=== PATIENT | female | born 1985 | race African-American/Black ===

== ENCOUNTER 2018-03-05 20:14 | Emergency (ER) | payer OTHER, SELFPAY | END 2018-03-05 22:36 | disposition home or self-care (01) | LOC: ERS 20:14 | DX: K02.9 Dental caries, unspecified (principal); I10 Essential (primary) hypertension; F32.9 Major depressive disorder, single episode, unspecified; F17.210 Nicotine dependence, cigarettes, uncomplicated | CPT/HCPCS: 99282 ==

== ENCOUNTER 2018-06-28 09:43 | Inpatient (IN) | payer OTHER ==
[2018-06-28 10:19] VITALS: BMI 24.8
--- NOTE | 2018-06-28 11:15 | PDOC.LDHP ---
Labor and Delivery H&P Chief complaint: contractions, loss of fluid HPI: Ms. Bloom is a at 38.5 weeks by a 3T US with unknown LMP that presents today with complaints of LOF (clear) since yesterday and not a definable contraction pattern. She reports the contraction pain as in her lower abdomen, back and buttocks. consisitent fluid leak and positive FM. she denies vaginal bleeding or discharge. Current gestational age (weeks): 38 (.5) Due date: 07/07/18 Dating criteria: other (3T US) Current complications: other (late to care) Abnormal US findings: No Past Medical History: anemia in , one at 26 weeks, possible elevated pressures during previous preg. untreated Current medications: pre-chelly vitamins, other (diclegis) Previous surgical history: none Social history: tobacco use - Physical Exam Vital signs reviewed and normal: yes General: NAD, resting Heart: RRR Lungs: CTAB Abdomen: NTTP Extremeties: no edema FHT: variability present (baseline 150, accelerations x2. reactive strip) - Vaginal Exam cm dilated: 3 Effacement: 75% Station: -2 - OB Labs Blood type: AB RH: positive Antibody Screen: positive HIV: negative RPR: negative HEPSAg: negative GBS: negative Urine drug screen: negative Rubella: immune - Assessment labor r/o - Plan Plan: observation in L&D -: - /toco monitoring on L&D, monitor VS - cervical exam with gel preformed on arrival, amnisure not useful at this point - unchanged cervical exam from clinic 1 week ago - AXEL 11.5 - sterile spec neg for pooling/valsalva - recheck cervix in 2 hours - DC with labor precautions if now change <Artie Walker - Last Filed: 06/28/18 12:41> <Stalin Hollis - Last Filed: 06/28/18 16:59> Allergies/Adverse Reactions: Allergies Allergy/AdvReac Type Severity Reaction Status Date / Time No Known Allergies Allergy Verified 06/28/18 10:07 Attending Addendum - Attending Addendum Date/Time: 06/28/18 2157 I personally evaluated the patient and discussed the management with Dr. Walker. I agree with the History, Examination, Assessment and Plan documented above with any addition or exceptions noted below. 32 y.o. EGA 38 5/7 wks by 3T US with unsure LMP, late onset to PNC, poor historian may have been treated for HTN in in prior here for c/o LOF, determined to be intact without ROM. Over course of eval, pt' s BP's have consistently run 130-140's/80-90's. Urine Pr/Cr ratio 0.113, so Gestational HTN. EFW today 3 kg. BPP 03/17 with Cat1 strip. SVE reported /- 2/posterior/medium. IOL for Gest HTN at term. Cytotec vs. Pitocin. T&C 2UPRBC 's to hold in anticipation of PPH with grand multiparous uterine atony. <Stalin Hollis - Last Filed: 06/28/18 16:59>
[2018-06-28 14:38] LABS: #Basophils 0.1 thou/uL (0.0-0.2); #Eosinphils 0.1 thou/uL (0.0-0.7); #Lymphocytes 1.8 thou/uL (1.20-3.40); #Monocytes 0.3 thou/uL (0.11-0.59); #Neutrophils 5.9 thou/uL (1.40-6.50); %Basophils 0.9 % (0.0-1.0); %Eosinophils 0.6 % (0.0-10.0); %Lymphocytes 22.1 % (21.0-51.0); %Neutrophils 72.4 % (42.0-75.0); Hemoglobin 10.4 g/dL (12.0-16.0); Mean Corpuscular HGB CONC 30.4 g/dL (32.0-36.0); Mean Corpuscular Hemoglobin 23.7 pg (27.0-31.0); Mean Corpuscular Volume 77.9 fL (78.0-98.0); Mean Platelet Volume 9.1 fL (7.4-10.4); Platelet Count 304 thou/uL (130-400); RBC Distribution Width 15.4 % (11.5-14.5); Red Blood Cell (RBC) Count 4.38 mill/uL (4.20-5.40); White Blood Cell (WBC) Count 8.1 thou/uL (4.8-10.8)
[2018-06-28 14:57] LABS: Creatinine, Urine 141.2 mg/dL (47-110)
[2018-06-28 14:59] LABS: ALT (SGPT) 8 U/L (8-55); AST (SGOT) 12 U/L (5-34); Albumin 3.7 g/dL (3.5-5.0); Alkaline Phosphatase 147 U/L (40-150); Anion Gap 13 mmol/L (10-20); BUN (Urea Nitrogen) 4 mg/dL (7.0-18.7); Bilirubin, Total 0.4 mg/dL (0.2-1.2); Calc. Creatinine Clearance 128 mL/min (70-130); Calcium 9.5 mg/dL (7.8-10.44); Carbon Dioxide 21 mmol/L (22-29); Chloride 106 mmol/L (98-107); Estimated GFR-MDRD Greater than 90; Globulin 3.7 g/dL (2.4-3.5); Glucose 75 mg/dL (70-105); LDH 153 U/L (125-220); Potassium 4.5 mmol/L (3.5-5.1); Protein, Total 7.4 g/dL (6.0-8.3); Sodium 135 mmol/L (136-145); Uric Acid 5.4 mg/dL (2.6-6.0)
[2018-06-28] MEDS ORDERED: Doxylamine 25 MG TAB PO PRN (16:16)
--- NOTE | 2018-06-28 19:07 | ULT ---
OB ULTRASOUND OB NONSTRESS BIOPHYSICAL PROFILE: Comparison: None. Technique: Nonstress biophysical profile was performed. Sagittal and transverse imaging of the gravid uterus was performed. FINDINGS: Single intrauterine gestation with vertex presentation. Anterior placenta. Current study is limited i n the evaluation for previa. Cervix is not adequately demonstrated due to vertex presentation. Amniotic fluid index is 12.3 cm. biometry: BPD 9.30 cm 37 weeks 6 days HC 33.05 cm 37 weeks 4 days AC 33.42 cm 37 weeks 2 days FL 6.93 cm 35 weeks 4 days Average age by sonography is 37 weeks 1 day. FRANCINE is 12-9-18. Estimated weight is 3087 grams, +/ - 457 grams. There are hearts at the rate of 172 beats/minute. Nonstress biophysical profile: tone: 2 breathin movement: 2 Amniotic fluid: 2 Total: 8/8 IMPRESSION: Nonstress biophysical profile with a score of 8/8. POS: [facility]
[2018-06-28] MEDS ORDERED: Promethazine HCl 25 MG/ML VIAL IM PRN (20:31)
[2018-06-28] MEDS ORDERED: NS / Oxytocin 40 units/1000ml 1,000 ML IV PRN (20:31)
[2018-06-28] MEDS ORDERED: Carboprost 250 MCG/ML AMP IM PRN (20:31)
[2018-06-28] MEDS ORDERED: Lidocaine 1% (PF) 30 ML VIAL SC PRN (20:31)
[2018-06-28] MEDS ORDERED: Diphenoxylate HCl/Atropine Tablet PO PRN (20:31)
[2018-06-28] MEDS ORDERED: Misoprostol 200 MCG TAB PR PRN (20:31)
[2018-06-28] MEDS ORDERED: Methylergonovine 0.2 MG/ML VIAL IM PRN (20:31)
[2018-06-28] MEDS ORDERED: NS w/ Oxytocin 10 units 500 ML IV SCH (20:31)
[2018-06-28] MEDS ORDERED: Ondansetron PF 4 MG/2 ML Vial IVP PRN (20:31)
[2018-06-28] MEDS: Acetaminophen 500 MG TAB PO PRN (21:39)
[2018-06-28 22:34] LABS: ALT (SGPT) Less than 7 U/L (8-55); AST (SGOT) 11 U/L (5-34); Albumin 3.4 g/dL (3.5-5.0); Alkaline Phosphatase 136 U/L (40-150); Anion Gap 14 mmol/L (10-20); BUN (Urea Nitrogen) 6 mg/dL (7.0-18.7); Bilirubin, Total 0.3 mg/dL (0.2-1.2); Calc. Creatinine Clearance 136 mL/min (70-130); Calcium 9.3 mg/dL (7.8-10.44); Carbon Dioxide 20 mmol/L (22-29); Chloride 104 mmol/L (98-107); Estimated GFR-MDRD Greater than 90; Globulin 3.5 g/dL (2.4-3.5); Glucose 103 mg/dL (70-105); Protein, Total 6.9 g/dL (6.0-8.3); Sodium 134 mmol/L (136-145)
[2018-06-28 22:44] LABS: Hemoglobin 9.7 g/dL (12.0-16.0); Mean Corpuscular HGB CONC 30.4 g/dL (32.0-36.0); Mean Corpuscular Hemoglobin 23.8 pg (27.0-31.0); Mean Corpuscular Volume 78.4 fL (78.0-98.0); Mean Platelet Volume 12.9 fL (7.4-10.4); Platelet Count 303 thou/uL (130-400); RBC Distribution Width 15.6 % (11.5-14.5); Red Blood Cell (RBC) Count 4.08 mill/uL (4.20-5.40); White Blood Cell (WBC) Count 8.1 thou/uL (4.8-10.8)
[2018-06-28 22:52] LABS: Syphilis Antibody Nonreactive (Nonreactive); Syphilis Antibody Index 0.04 S/CO (<1.00 Non-Reactive)
[2018-06-28 23:18] LABS: HBSAg Index 0.25 S/CO (0-0.99); Hep B Surf Ag Non-Reactive S/CO (NonReactive)
--- NOTE | 2018-06-28 23:43 | PDOC.LDPN ---
Labor & Delivery Progress Note - Subjective Subjective: comfortable, no concerns - Objective Vital signs reviewed and normal: yes General: NAD, resting Uterine fundus: non tender Dilation: 3 Effacement: 75% Station: -1 FHT: category 1, variability present [place] contractions every: 2-4min - Assessment (1) IUP (intrauterine ), incidental Code(s): Z34.90 - ENCNTR FOR SUPRVSN OF NORMAL , UNSP, UNSP TRIMESTER Current Visit: Yes Status: Acute (2) Multigravida in third trimester Code(s): Z34.83 - ENCOUNTER FOR SUPRVSN OF NORMAL , THIRD TRIMESTER Current Visit: Yes Status: Acute Plan: continue plan of care, pitocin for augmentation -: IUP, eIOL - patient resting comfortably - no pre-E symptoms - CTX every 2-4 min on the monitor, patient not feeling CTX - last check at 2100 3/-1, will recheck at 0000 - Will continue to monitor VS - Pitocin currently running - FHR: 150s, mod variability, no decels, accels +, cat 2 - WIll continue to monitor - continue plan of care Hx of gHTN - BP wnl - will continue to monitor
[2018-06-29] MEDS: Butorphanol Tartrate 1 MG/ML VIAL SLOW IVP PRN ×2 (00:59→02:28)
--- NOTE | 2018-06-29 01:22 | PDOC.LDPN ---
Labor & Delivery Progress Note - Subjective Subjective: painful contractions, vaginal pressure - Objective Vital signs reviewed and normal: yes General: NAD, breathing through contractions Uterine fundus: non tender Dilation: 4 Effacement: 75% Station: -1 FHT: category 1, variability present [place] contractions every: every 2-4min - Assessment (1) IUP (intrauterine ), incidental Code(s): Z34.90 - ENCNTR FOR SUPRVSN OF NORMAL , UNSP, UNSP TRIMESTER Current Visit: Yes Status: Acute (2) Multigravida in third trimester Code(s): Z34.83 - ENCOUNTER FOR SUPRVSN OF NORMAL , THIRD TRIMESTER Current Visit: Yes Status: Acute Plan: continue plan of care, pitocin for augmentation -: IUP, eIOL - patient resting, pt now feeling CTX ever 2-4min - Pt given stadol for pain - no pre-E symptoms - CTX every 2-4 min - last check at 004/-1, will continue checks - Will continue to monitor VS - Pitocin currently running at 8 - FHR: 130s, mod variability, no decels, accels + - Will continue to monitor - continue plan of care Hx of gHTN - BP wnl - will continue to monitor
--- NOTE | 2018-06-29 03:23 | PDOC.LDPN ---
Labor & Delivery Progress Note - Subjective Subjective: comfortable, no concerns - Objective Vital signs reviewed and normal: yes General: NAD, resting, breathing through contractions Uterine fundus: non tender Dilation: 5 Effacement: 75% Station: 0 FHT: category 1, variability present [place] contractions every: every 2-4min - Assessment (1) IUP (intrauterine ), incidental Code(s): Z34.90 - ENCNTR FOR SUPRVSN OF NORMAL , UNSP, UNSP TRIMESTER Current Visit: Yes Status: Acute (2) Multigravida in third trimester Code(s): Z34.83 - ENCOUNTER FOR SUPRVSN OF NORMAL , THIRD TRIMESTER Current Visit: Yes Status: Acute Plan: continue plan of care, pitocin for augmentation -: IUP, eIOL - patient resting, pt now feeling CTX ever 2-4min - Pt given stadol for pain - no pre-E symptoms - CTX every 2-4 min - last check at 0300 5/80/-0, will continue checks - Will continue to monitor VS - continue pitocin - FHR: 130s, mod variability, no decels, accels + - Will continue to monitor - continue plan of care Hx of gHTN - BP wnl - will continue to monitor
[2018-06-29] MEDS ORDERED: Milk Of Magnesia 30 ML UDCUP PO PRN (05:02)
[2018-06-29] MEDS ORDERED: Preparation H Ointment 28 GM TUBE PR PRN (05:02)
[2018-06-29] MEDS ORDERED: Methylergonovine 0.2 MG/ML VIAL IM PRN (05:02)
[2018-06-29] MEDS ORDERED: Adacel (T-DAP) 0.5 ML VIAL IM ONE (05:02)
[2018-06-29] MEDS ORDERED: Benzocaine/Menthol 20-0.5% 60 ML CAN TOP PRN (05:02)
[2018-06-29] MEDS ORDERED: diphenhydrAMINE 25 MG CAP PO PRN (05:02)
[2018-06-29] MEDS ORDERED: Bisacodyl 10 MG SUPP PR PRN (05:02)
[2018-06-29] MEDS ORDERED: Lanolin Ointment 7 GM TUBE TOP PRN (05:02)
--- NOTE | 2018-06-29 05:04 | PDOC.OPDEL ---
Addendum entered and electronically signed by Vickie Diaz MD 06/29/18 05:17 : Patient did not have an uneventful antepartum course -- patients antepartum course consisted of: late to care, gHTN, previous PPH, previous pre-term delivery, grand multiparity. Original Note: OB Operative/Delivery Note Delivery Dr/Surgeon: Elissa Diaz Frakes Assist: Rafy Pre-Delivery Diagnosis: active labor Procedure/Post Delivery Dx: spontaneous vaginal delivery Weeks gestation: 38 (38.6wk) - Findings A Sex: male - 1 min: 9 - 5 min: 9 - Additional Findings/Plan Placenta delivered: spontaneous Repaired Obstetrical Laceration: none Estimated blood loss: 250ml Compilations/Other Findings: This is 32yo F no 7109 @ 38.6wks who delivered a viable M infant at 0445 on 06/29/18. Following an uneventful antepartum course, a vigorous male was delivered over an intact perineum in the occipitoanterior position. Anterior Shoulder and then remainder of the body delivered. No nuchal cord. The head was held down and mouth and nares were bulb suctioned. Cord clamped (after delayed cord clamping) and cut and cord blood collected. Placenta delivered intact (in the [place] presentation) with a 3 vessel cord noted. Fundal massage was performed and the fundus was firm. The cervix and vagina were inspected and found to be free of lacerations. Cytotech used as a precaution due to hx of previous PPH. EBL 250ml. Infant went to nursery in good condition for routine care. Apgars were 9/9 at 1 & 5 minutes, respectively. Patient tolerated delivery well and went to after routine recovery/care. Post delivery plan: routine recovery <Vickie Diaz - Last Filed: 06/29/18 05:02> Attending Addendum - Attending Addendum Date/Time: 06/29/18 0900 I personally directly supervised the . No complications. See resident noted. <Kam Hillman - Last Filed: 06/29/18 09:01>
[2018-06-29] MEDS ORDERED: NS / Oxytocin 40 units/1000ml 1,000 ML IV SCH (05:15)
[2018-06-29] MEDS ORDERED: Lactated Ringer's 1,000 ML IV SCH (05:15)
[2018-06-29] MEDS ORDERED: Acetaminophen/Codeine 30-300mg Tablet PO PRN (05:29)
[2018-06-29] MEDS ORDERED: Ibuprofen 800 MG TAB PO SCH (06:00)
[2018-06-29] MEDS: pyridOXINE 50 MG (B6) TAB PO SCH ×2 (08:06→10:06)
[2018-06-29] MEDS ORDERED: Ketorolac Tromethamine 30 MG/ML VIAL IVP SCH (08:15)
[2018-06-29] MEDS: Docusate Calcium (SURFAK) 240 MG CAP PO SCH ×2 (08:28→21:42)
[2018-06-29] MEDS: Prenatal Vitamin 1 TAB PO SCH (08:28)
[2018-06-29] MEDS: Ferrous Sulfate 325 MG TAB PO SCH ×2 (08:28→17:25)
[2018-06-29] MEDS ORDERED: pyridOXINE 50 MG (B6) TAB PO SCH (09:00)
[2018-06-29] MEDS ORDERED: Acetaminophen 500 MG TAB PO SCH (10:00)
[2018-06-29] MEDS ORDERED: Metoclopramide HCl 10 MG/2 ML VIAL IVP SCH (10:00)
[2018-06-29] MEDS ORDERED: diphenhydrAMINE 50 MG/ML VIAL IVP SCH (10:00)
[2018-06-29 10:27] LABS: Hemoglobin 9.5 g/dL (12.0-16.0); Mean Corpuscular HGB CONC 29.7 g/dL (32.0-36.0); Mean Corpuscular Hemoglobin 23.1 pg (27.0-31.0); Mean Corpuscular Volume 77.7 fL (78.0-98.0); Mean Platelet Volume 8.7 fL (7.4-10.4); Platelet Count 265 thou/uL (130-400); RBC Distribution Width 15.4 % (11.5-14.5); Red Blood Cell (RBC) Count 4.12 mill/uL (4.20-5.40); White Blood Cell (WBC) Count 13.9 thou/uL (4.8-10.8)
[2018-06-29 10:52] LABS: ALT (SGPT) Less than 7 U/L (8-55); AST (SGOT) 12 U/L (5-34); Alkaline Phosphatase 118 U/L (40-150); Anion Gap 10 mmol/L (10-20); BUN (Urea Nitrogen) 4 mg/dL (7.0-18.7); Bilirubin, Total 0.4 mg/dL (0.2-1.2); Calc. Creatinine Clearance 136 mL/min (70-130); Calcium 8.9 mg/dL (7.8-10.44); Carbon Dioxide 23 mmol/L (22-29); Chloride 108 mmol/L (98-107); Estimated GFR-MDRD Greater than 90; Globulin 3.4 g/dL (2.4-3.5); Glucose 68 mg/dL (70-105); Potassium 3.7 mmol/L (3.5-5.1); Protein, Total 6.4 g/dL (6.0-8.3); Sodium 137 mmol/L (136-145)
[2018-06-29 14:39] LABS: Creatinine, Urine 34.32 mg/dL (47-110)
[2018-06-29] MEDS: Acetaminophen 500 MG TAB PO PRN ×2 (15:20→23:10)
[2018-06-30] MEDS ORDERED: diphenhydrAMINE 50 MG/ML VIAL IVP SCH (04:00)
[2018-06-30] MEDS ORDERED: diphenhydrAMINE 25 MG CAP PO SCH (04:00)
[2018-06-30] MEDS ORDERED: Metoclopramide HCl 10 MG TAB PO SCH (04:00)
[2018-06-30] MEDS ORDERED: Metoclopramide HCl 10 MG/2 ML VIAL IVP SCH (04:00)
--- NOTE | 2018-06-30 07:17 | PDOC.PP ---
Post Progress Note Post Day #: 1 Subjective: No concerns. breast feeding well. pain controlled. PO intake tolerated: yes Flatus: no Ambulation: yes Vital Signs (12 hours) Temp Pulse Resp BP Pulse Ox 06/30/18 03:45 98.0 F 70 18 119/73 98 06/30/18 00:05 98.2 F 65 20 144/97 H 100 06/29/18 19:50 98.6 F 75 20 136/83 100 Weight Weight 69.853 kg - Physical Examination General: NAD Cardiovascular: no m/r/g, RRR Respiratory: clear to auscultation bilaterally, non-labored breathing Abdominal: + bowel sounds, lochia, no distention, appropriately TTP Fundus firm & at: 3 cm below umbilicus Extremities: negative homans (B) Neurological: no gross focal deficits Psychiatric: A&Ox3, normal affect Result Diagrams: 06/29/18 10:19 06/29/18 10:19 Additional Labs: Post Labs Blood Type AB POSITIVE 06/28/18 14:22 Hep Bs Antigen Non-Reactive S/CO (NonReactive) 06/28/18 18:33 (1) Gestational [-induced] hypertension without significant proteinuria , complicating childbirth Code(s): O13.4 - GESTATNL HTN WITHOUT SIGNIFICANT PROTEIN, COMP CHILDBIRTH Status: Acute (2) Delivery normal Code(s): O80 - ENCOUNTER FOR FULL-TERM UNCOMPLICATED DELIVERY Status: Acute - Assessment/Plan 1. gHTN- Only one BP in past 24 hours >140/90. Labs WNL. Elevated protein/Cr ratio likely 2/2 lochia. Will continue to monitor. Possible d/c later today or tomorrow. 2. Late Care- CM consulted 3. Grandmultiparity- no signs PPH. 4. - appears to be going well. 5. Post : has not passed gas, will monitor. Dispo: D/C tomorrow <Mendez Quesada - Last Filed: 06/30/18 08:32> Vital Signs (12 hours) Temp Pulse Resp BP Pulse Ox 06/30/18 07:57 98.4 F 72 20 139/87 100 06/30/18 03:45 98.0 F 70 18 119/73 98 06/30/18 00:05 98.2 F 65 20 144/97 H 100 Weight Weight 69.853 kg Result Diagrams: 06/29/18 10:19 06/29/18 10:19 Additional Labs: Post Labs Blood Type AB POSITIVE 06/28/18 14:22 Hep Bs Antigen Non-Reactive S/CO (NonReactive) 06/28/18 18:33 <Nai Ramirez - Last Filed: 06/30/18 10:05> Attending Addendum - Attending Addendum Date/Time: 06/30/18 1000 I personally evaluated the patient and discussed the management with Dr. Quesada I agree with the History, Examination, Assessment and Plan documented above with any addition or exceptions noted below. 32 yo female s/p uncomplicated on 06/29/18 at 0445 PPD#1 Doing well. Lochia appropriate. . Tolerating PO well. Voiding without complications. Pain controlled. Ambulating. VS reviewed. Labs reviewed. Nonill appearing. No acute distress. Laying in bed. RRR. No murmurs. CTA bilaterally. No C/W/R. Nontender. Fundus firm below umbilicus. FROM, nontender, no edema 1. s/p : Routine pp care. Meeting milestones. Continue to assist with . 2. gHTN: Labs performed yesterday to rule out preeclampsia due to headache and elevated BP. BP normotensive. Headache resolved with meds. Continue to monitor BP throughout the day. Ok to use NSAIDs at this time for pain control. 3. hx of PTL 4. hx of PPH: Lochia appropriate. H&H stable. 5. 6. Contraception: Unsure Dispo: Continue routine pp care. Monitor BP and symptoms throughout the day. Likely d/c in AM. ABrayMD <Nai Ramirez - Last Filed: 06/30/18 10:05>
[2018-06-30] MEDS: Ferrous Sulfate 325 MG TAB PO SCH ×2 (09:20→17:51)
[2018-06-30] MEDS: Docusate Calcium (SURFAK) 240 MG CAP PO SCH ×2 (09:20→21:15)
[2018-06-30] MEDS: Prenatal Vitamin 1 TAB PO SCH (09:20)
[2018-06-30] MEDS: Ibuprofen 800 MG TAB PO SCH ×2 (14:18→21:15)
[2018-07-01] MEDS: Acetaminophen 500 MG TAB PO PRN (03:30)
[2018-07-01] MEDS: Ibuprofen 800 MG TAB PO SCH (05:32)
--- NOTE | 2018-07-01 08:04 | PDOC.PP ---
Post Progress Note Post Day #: 2 Subjective: Breast feeding well. states headache comes and goes. resolves with APAP or ibuprofen. Pain controlled. Would like to go home today. PO intake tolerated: yes Flatus: yes Ambulation: yes Vital Signs (12 hours) Temp Pulse Resp BP Pulse Ox 07/01/18 03:27 98.1 F 89 18 128/75 97 06/30/18 22:52 98.3 F 72 16 124/80 06/30/18 21:09 98.4 F 77 20 116/75 100 Weight Weight 69.853 kg - Physical Examination General: NAD Cardiovascular: no m/r/g, RRR Respiratory: clear to auscultation bilaterally, non-labored breathing Abdominal: lochia, no distention, appropriately TTP Fundus firm & at: 3 cm below umbilicus Extremities: negative homans (B) Neurological: no gross focal deficits Psychiatric: A&Ox3, normal affect Result Diagrams: 06/29/18 10:19 06/29/18 10:19 Additional Labs: Post Labs Blood Type AB POSITIVE 06/28/18 14:22 Hep Bs Antigen Non-Reactive S/CO (NonReactive) 06/28/18 18:33 (1) Gestational [-induced] hypertension without significant proteinuria , complicating childbirth Code(s): O13.4 - GESTATNL HTN WITHOUT SIGNIFICANT PROTEIN, COMP CHILDBIRTH Status: Acute (2) Delivery normal Code(s): O80 - ENCOUNTER FOR FULL-TERM UNCOMPLICATED DELIVERY Status: Acute - Assessment/Plan 1. gHTN- BP nomrmal within last 24 hours. discussed pre-eclampsia precautions. 2. Late Care- CM consulted 3. Grandmultiparity- no signs PPH. 4. - appears to be going well. 5. Post : Uncomplicated course, would like to have tubal ligation performed. Advised to f/u on Thursday at [facility] and will arranged for tubal and depo shot until it can be performed. Dispo: D/C today. <Mendez Quesada - Last Filed: 07/01/18 08:02> Vital Signs (12 hours) Temp Pulse Resp BP Pulse Ox 07/01/18 09:24 98.2 F 80 16 120/83 99 07/01/18 03:27 98.1 F 89 18 128/75 97 Weight Weight 69.853 kg Result Diagrams: 06/29/18 10:19 06/29/18 10:19 Additional Labs: Post Labs Blood Type AB POSITIVE 06/28/18 14:22 Hep Bs Antigen Non-Reactive S/CO (NonReactive) 06/28/18 18:33 <Nai Ramirez - Last Filed: 07/01/18 12:13> Attending Addendum - Attending Addendum Date/Time: 07/01/18 1211 I personally evaluated the patient and discussed the management with Dr. Quesada I agree with the History, Examination, Assessment and Plan documented above with any addition or exceptions noted below. 32 yo female s/p uncomplicated on 06/29/18 at 0445 PPD#2 Doing well. Lochia appropriate. . Tolerating PO well. Voiding without complications. Pain controlled. Ambulating. Requesting d/c. Headache improved/resolved. VS reviewed. Labs reviewed. Nonill appearing. No acute distress. Sitting in bed. RRR. No murmurs. CTA bilaterally. No C/W/R. Nontender. Fundus firm below umbilicus. FROM, nontender, no edema 1. s/p : Routine pp care. Meeting milestones. Continue to encourage breast feeding. Ok to d/c to home. 2. gHTN: Labs performed to rule out preeclampsia due to headache and elevated BP. BP remains normotensive. Headache resolved with meds. Ok to use NSAIDs at this time for pain control. Labs negative. 3. hx of PTL 4. hx of PPH: Lochia appropriate. H&H stable. 5. 6. Contraception: Depo --> PP tubal Dispo: D/c to home. Follow up in 1 wk. ABrayMD <Nai Ramirez - Last Filed: 07/01/18 12:13>
[2018-07-01 09:24] VITALS: BP 120/83; TEMP 98.2
[2018-07-01] MEDS: Ferrous Sulfate 325 MG TAB PO SCH (09:51)
[2018-07-01] MEDS: Prenatal Vitamin 1 TAB PO SCH (09:52)
[2018-07-01] MEDS: Docusate Calcium (SURFAK) 240 MG CAP PO SCH (09:52)
== END 2018-07-01 10:05 | disposition home or self-care (01) | DRG 807 ==
LOC: L&D/OP 09:43 → L&D 20:44 → 3SW 06-29 06:52
PROVIDERS: ADMIT Student in an Organized Health Care Education/Training Program; ATTEND Student in an Organized Health Care Education/Training Program
PROC: 10E0XZZ Delivery of Products of Conception, External Approach (ICD-10-PCS; principal; 2018-06-29)
DX: O13.4 Gestational [pregnancy-induced] hypertension without significant proteinuria, complicating childbirth (principal); Z37.0 Single live birth; Z3A.38 38 weeks gestation of pregnancy; O62.2 Other uterine inertia; Z64.1 Problems related to multiparity; Z79.899 Other long term (current) drug therapy
CPT/HCPCS: 36415; 76805; 76819; 80053; 82570; 83615; 84156; 84550; 85025; 85027; 86780; 86850; 86900; 86901; 87340; 99285; J0595; J1200; J1885; J2001; J2765